=== PATIENT | female | born 1930 | race Caucasian/White ===

== ENCOUNTER 2018-12-20 13:39 | Emergency (ER) | payer OTHER ==
[~2018-12-20] VITALS: Ht 160 cm; Wt 81.7 kg
[2018-12-20 14:36] LABS: ABSOLUTE NEUTROPHILS 3.3 thou/uL (1.4-8.2); BASOPHILS 0.2 % (0.0-2.0); EOSINOPHILS 0.1 % (0.0-3.0); HEMATOCRIT 30.8 % (37.0-47.0); HEMOGLOBIN 9.9 gm/dL (12.0-15.0); LYMPHOCYTES 12.5 % (24.0-44.0); MCH 29.4 pg (26.0-34.0); MCHC 32.1 g/dL (28.0-37.0); MCV 91.8 fL (80.0-100.0); POLYS 82.2 % (36.0-66.0); RBC 3.36 mil/uL (4.20-5.00)
[2018-12-20 14:45] LABS: ANION GAP 11 mmol/L (7-16); BUN 104 mg/dL (7-18); CALCIUM 8.5 mg/dL (8.5-10.1); CHLORIDE 103 mmol/L (98-107); CO2 25 mmol/L (21-32); CREATININE 3.7 mg/dL (0.6-1.0); GLUCOSE 88 mg/dL (74-106); POTASSIUM 4.7 mmol/L (3.5-5.1); SODIUM 139 mmol/L (136-145)
[2018-12-20] MEDS ORDERED: ELIQUIS2.5 MG PO (14:54)
[2018-12-20] MEDS ORDERED: LASIX 40 MG TAB40 M2 PO (14:55)
[2018-12-20] MEDS ORDERED: ATORVASTATIN CA20 MG PO (14:55)
[2018-12-20] MEDS ORDERED: LOSARTAN POTAS100 MG PO (14:56)
[2018-12-20] MEDS ORDERED: GLIMEPIRIDE1 MG PO (14:56)
[2018-12-20 14:57] LABS: ALBUMIN 3.1 g/dL (3.4-5.0); MAGNESIUM 1.7 mg/dL (1.8-2.4); SGOT 36 U/L (15-37); SGPT 21 U/L (30-65); TOTAL BILIRUBIN 0.5 mg/dL (<0.1-1.0); TROPONIN-I <0.06 ng/mL (<0.06)
[2018-12-20] MEDS ORDERED: TOPROL XL100 MG PO (14:57)
[2018-12-20 15:07] LABS: PLATELET COUNT 83 thou/uL (150-400); PLATELET ESTIMATE SLIGHTLY DECREASED
[2018-12-20 16:20] VITALS: BP 133/94
--- NOTE | 2018-12-21 08:00 | EKG ---
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
== END 2018-12-20 16:29 | disposition home or self-care (01) ==
LOC: ER 13:39
PROVIDERS: Emergency Medicine
DX: E11.649 Type 2 diabetes mellitus with hypoglycemia without coma (principal); E11.22 Type 2 diabetes mellitus with diabetic chronic kidney disease; N18.9 Chronic kidney disease, unspecified; D69.6 Thrombocytopenia, unspecified; E11.40 Type 2 diabetes mellitus with diabetic neuropathy, unspecified; I48.91 Unspecified atrial fibrillation; I10 Essential (primary) hypertension